=== PATIENT | female | born 1975 | race Caucasian/White ===

== ENCOUNTER 2022-12-19 19:44 | Emergency (ER) | payer SELFPAY ==
[2022-12-19 20:36] VITALS: BP 106/65; PULSE 90; RESP 18; TEMP 36.8; O2SAT 99; BMI 23.5
[2022-12-19] MEDS: 0.9 % SODIUM CHLORIDE 1000 ml 1,000 ML IV ×2 (20:45→22:20)
--- NOTE | 2022-12-19 20:49 | CRLHL7_ITS ---
For Patients: As a result of the Century Cures Act, medical imaging exams and procedure reports are released immediately into your electronic medical record. You may view this report before your referring provider. If you have questions, please contact your health care provider. INDICATION: Abdominal pain TECHNIQUE: CT abdomen and pelvis acquired with 67 cc Isovue 370 IV contrast. Permanently recorded images are archived. COMPARISON: CT abdomen and pelvis 10/24/2015 FINDINGS: Lower chest: Unremarkable. Liver: Unremarkable. Normal in size and attenuation. No suspicious masses. Gallbladder and bile ducts: Cholelithiasis. No inflammation or biliary ductal dilation. Pancreas: Unremarkable. No mass or inflammation. Spleen: Unremarkable. Normal in size. No masses. Adrenal glands: Unremarkable. No nodules. Kidneys, Ureters, and Bladder: Mild asymmetric right-sided perinephric stranding. There are subtle areas of hypoattenuation within the cortex the right kidney. No stone or suspicious mass bilaterally. Unremarkable ureters and bladder. GI tract: Moderate colonic stool burden. Normal in caliber. No sign of inflammation. Normal appendix. Vasculature: Normal caliber abdominal aorta with mild atherosclerotic calcification. Mesenteric arteries are patent. Lymph nodes: No lymphadenopathy. Peritoneum/Abdominal Wall: Unremarkable. No free air or significant free fluid. Pelvis: Unremarkable. Bones: Unremarkable for age. IMPRESSION: Mild asymmetric right-sided perinephric stranding with subtle areas of hypoattenuation within the right renal cortex. Findings are suspicious for acute right-sided pyelonephritis. Recommend correlation with urinalysis. No evidence for renal abscess. Moderate colonic stool burden. Cholelithiasis without evidence for acute cholecystitis. Please note that all CT scans at this facility use dose modulation, iterative reconstruction, and/or weight-based dosing when appropriate to reduce radiation dose to as low as reasonably achievable. Dictated by Luis Berrios MD @ 12/19/2022 10:00:27 PM (Electronically Signed)
--- NOTE | 2022-12-19 20:50 | ED_ITS ---
HPI - Nausea/Vomiting/Diarrhea General Chief complaint: Nausea/Vomiting Stated complaint: Vomiting, body aches Time Seen by Provider: 12/19/22 20:46 History of Present Illness HPI Narrative: Patient is a 47-year-old woman with minimal past medical history who presents with vomiting for 3-4 days. She has had no change in her bowel but does have pain in the right lower quadrant. She has had generalized anorexia. She has had no blood in her vomitus. She has had no fevers no chills no night sweats no cough no shortness of breath. She has not been around anybody sick and has had no recent travel. The pain that she feels in her right lower quadrant is moderate and dull. No radiation. Related Data Home Medications Medication Instructions Recorded Confirmed No Known Home Medications 12/19/22 12/19/22 Allergies Allergy/AdvReac Type Severity Reaction Status Date / Time No Known Drug Allergies Allergy Verified 12/19/22 20:36 Review of Systems Status of ROS: Reports: 10 or more systems reviewed and unremarkable except as noted in History and below [facility] Medical History Sinusitis ?J32.9 - Chronic sinusitis, unspecified (ICD-10) Social History Smoking Status: Current some day smoker What tobacco products do you use: cigarettes Do you use any of these nicotine containing products: None Second hand tobacco smoke exposure: No How often do you have a drink containing alcohol: never How often do you have six or more drinks on one occasion: Never AUDIT-C Alcohol total score: 0 Non-prescribed substance use: denies use service: No Exam Narrative: Exam Narrative: EXAM GENERAL: Patient appears comfortable and well. EYES: No scleral icterus. LYMPH: No supraclavicular or cervical lymphadenopathy. SKIN: Visible skin seen during exam normal or with benign process only. EXT: No dependent lower extremity pedal edema. HEART: Regular rate and rhythm with no murmurs, rubs, or gallops. LUNGS: Clear to auscultation bilaterally with no crackles or wheezes. ABD: Soft, non tender, non distended. Minimal tenderness to palpation the right lower quadrant. PSYCH: Good eye contact, speech is not pressured. Const: Vital Signs, click to edit/add: Vital Signs - 24 hr 12/19/22 20:36 Temperature 98.2 F Pulse Rate [Right Pulse Oximeter] 90 Respiratory Rate 18 Blood Pressure [Ri ght Upper Arm] 106/65 Pulse Oximetry 99 Oxygen Delivery Me thod Room Air Course Course ED Course: Patient seen examined. IV fluids started. IV Zofran 4 mg given CBC CMP amylase UA CT abdomen pelvis collected. Vital Signs Vital signs: Initial Vital Signs Temperature 98.2 F 12/19/22 20:36 Temperature Source Temporal Artery Scan 12/19/22 20:36 Pulse Rate 90 12/19/22 20:36 Respiratory Rate 18 12/19/22 20:36 Blood Pressure 106/65 12/19/22 20:36 Blood Pressure Mean 78 12/19/22 20:36 Blood Pressure Position Sitting 12/19/22 20:36 Pulse Oximetry 99 12/19/22 20:36 Oxygen Delivery Method Room Air 12/19/22 20:36 Vital Signs Temperature 98.2 F 12/19/22 20:36 Pulse Rate 90 12/19/22 20:36 Respiratory Rate 18 12/19/22 20:36 Blood Pressure 106/65 12/19/22 20:36 Pulse Oximetry 99 12/19/22 20:36 Oxygen Delivery Method Room Air 12/19/22 20:36 Temperature 98.2 F 12/19/22 20:36 Pulse Rate 90 12/19/22 20:36 Respiratory Rate 18 12/19/22 20:36 Blood Pressure 106/65 12/19/22 20:36 Pulse Oximetry 99 12/19/22 20:36 Oxygen Delivery Method Room Air 12/19/22 20:36 MDM - Nausea/Vomiting/Diarrhea MDM Narrative Medical decision making narrative: Patient is a 47-year-old woman who presents with nausea vomiting and abdominal pain. She does have leukocytosis as well as elevated transaminase and alkaline phosphatase. CT of the abdomen pelvis shows right-sided pyelonephritis. Patient is treated with IV hydration with 2 L normal saline. She was treated with IV Zofran. I did give her initial dose of Rocephin and did collect blood cultures and urine culture. UA still pending. At this time I did recommend ciprofloxacin 500 mg twice a day for 7 days with outpatient follow-up in 3-4 days. Zofran as needed for vomiting. Also noted on her evaluation was elevated transaminitis which I would recommend outpatient workup. Differential Diagnosis Differential diagnosis: Likely traveler's diarrhea, food poisoning, gastroenteritis, drug-induced nausea and vomiting and dehydration Lab Data Labs: Lab Results 12/19/22 12/19/22 Range/Units 20:35 20:45 WBC 12.43 H (4.50-11.00) K/uL RBC 4.22 (4.00-5.20) m/uL Hgb 13.3 (12.0-16.0) gm/dL Hct 40.4 (33.0-51.0) % MCV 96 (80-100) fL MCH 32 (26-34) pg MCHC 33 (32-36) gm/dL RDW Coeff of Josefina 12.9 (11.5-15.5) % Plt Count 303 (140-440) K/uL Neut % (Auto) 78.9 H (42.0-72.0) % Lymph % (Auto) 12.3 L (20-44) % Millard % (Auto) 6.5 (0.0-11.0) % Eos % (Auto) 1.2 (0.0-7.0) % Baso % (Auto) 0.2 (0.0-3.0) % Neut # (Auto) 9.80 H (1.7-7.0) K/uL Lymph # (Auto) 1.50 (0.90-2.90) K/uL Millard # (Auto) 0.80 (0.00-0.90) K/UL Eos # (Auto) 0.10 (0.00-0.50) K/uL Baso # (Auto) 0.00 (0.00-0.30) K/uL Abs Immat Gran (auto) 0.10 (0.00-0.30) K/uL Imm/Tot Granulo (auto) 0.9 % Sodium 137 (135-149) mmol/L Potassium 3.5 L (3.6-5.1) mmol/L Chloride 105 (96-114) mmol/L Carbon Dioxide 25 (20-32) mmol/L Anion Gap 7 (7-15) mEq/L BUN 14 (5-24) mg/dL Creatinine 0.9 (0.5-1.5) mg/dL Estimated Creat Clear 68.16 Estimated GFR 80 ml/min Glucose 106 (60-115) mg/dL Calcium 8.9 (8.4-10.6) mg/dL Total Bilirubin 0.4 (0.1-1.5) mg/dL AST 205 H (12-35) U/L ALT 272 H (4-35) U/L Alkaline Phosphatase 172 H (40-150) U/L Total Protein 7.6 (6.0-8.3) g/dL Albumin 3.9 (3.3-5.0) g/dL Amylase 54 (18-89) U/L SARS-CoV-2 (PCR) Negative SARS-CoV-2 (Negative) Influenza Type A (PCR) Negative PCR FLU A (Negative) Influenza Type B (PCR) Negative PCR FLU B (Negative) RSV (PCR) Negative PCR RSV (Negative) Discharge Plan Discharge Clinical Impression: Pyelonephritis Patient Disposition: Home, Self-Care Condition: Stable Instructions: Kidney Infection (ED) Additional Instructions: Ciprofloxacin x7 days Outpatient follow-up in 3-4 days Zofran as needed for vomiting. Rest Fluids PCP follow-up Activity Level: No Restrictions Discharge Diet: Regular Prescriptions: No Action No Known Home Medications Follow Up/Referrals: Provider,Not a Local [Primary Care Provider] - Stand Alone Forms: [employer] Info Instructions
[2022-12-19 21:03] LABS: Basophils Percent Auto 0.2 % (0.0-3.0); Eosinophils Percent Auto 1.2 % (0.0-7.0); Hematocrit 40.4 % (33.0-51.0); Hemoglobin* 13.3 gm/dL (12.0-16.0); Immature Granulocytes Pct Auto 0.9 %; Lymphocytes Percent Auto 12.3 % (20-44); Mean Corpuscular HGB Conc 33 gm/dL (32-36); Mean Corpuscular Hemoglobin 32 pg (26-34); Mean Corpuscular Volume 96 fL (80-100); Monocytes Percent Auto 6.5 % (0.0-11.0); Neutrophils Percent Auto 78.9 % (42.0-72.0); Platelet Count* 303 K/uL (140-440); RDW Coefficient of Variation % 12.9 % (11.5-15.5); Red Blood Count 4.22 m/uL (4.00-5.20); White Blood Count* 12.43 K/uL (4.50-11.00)
[2022-12-19 21:05] LABS: Slide Review Reflex No
[2022-12-19 21:14] LABS: Albumin* 3.9 g/dL (3.3-5.0); Chloride* 105 mmol/L (96-114)
[2022-12-19 21:15] LABS: Potassium* 3.5 mmol/L (3.6-5.1); Sodium* 137 mmol/L (135-149)
[2022-12-19 21:17] LABS: Amylase* 54 U/L (18-89); Anion Gap 7 mEq/L (7-15); Aspartate Amino Transferase* 205 U/L (12-35); Bilirubin Total* 0.4 mg/dL (0.1-1.5); Blood Urea Nitrogen* 14 mg/dL (5-24); Carbon Dioxide* 25 mmol/L (20-32); Creatinine* 0.9 mg/dL (0.5-1.5); Est. Creatinine Clearance* 68.16; Estimated Glomerular Filt Rate 80 ml/min; Total Protein* 7.6 g/dL (6.0-8.3)
[2022-12-19 21:18] LABS: Alanine Aminotransferase* 272 U/L (4-35); Alkaline Phosphatase* 172 U/L (40-150); Calcium* 8.9 mg/dL (8.4-10.6); Glucose* 106 mg/dL (60-115)
[2022-12-19 21:24] LABS: PCR FLU A Negative PCR FLU A (Negative); PCR FLU B Negative PCR FLU B (Negative); PCR RSV Negative PCR RSV (Negative); SARS PCR* Negative SARS-CoV-2 (Negative)
[2022-12-19] MEDS: ONDANSETRON 2 MG/ML inj 4 MG IVP (21:45)
[2022-12-19] MEDS: cefTRIAXone 1 GM in 0.9 % SODIUM CHLORIDE Mini-bag 100 ML IVPB (22:20)
[2022-12-19 22:31] LABS: Appearance Urine Clear (Clear); Bilirubin Urine Negative (Negative); Blood Urine 2+ (Negative); Color Urine Yellow (Yellow); Glucose Urine Negative (Negative); Ketones Urine Negative (Negative); Leukocyte Esterase Urine Trace (Negative); Nitrite Urine Positive (Negative); Protein Urine 1+ (Negative); Specific Gravity Urine <= 1.005 (1.000-1.030); Urobilinogen Urine 0.2 (0.2-1.0); pH Urine 5.5 (5.0-8.5)
[2022-12-19 22:50] LABS: Bacteria Urine Few; Squamous Epithelial Cell Urine Moderate (None-Few)
== END 2022-12-19 23:28 | disposition home or self-care (01) ==
PROVIDERS: Emergency Provider Internal Medicine
DX: N12 Tubulo-interstitial nephritis, not specified as acute or chronic (principal)
CPT/HCPCS: 36415; 74177; 80053; 81003; 81015; 82150; 85025; 87040; 87086; 87186; 87631; 99283; 99284; 99285; J0696; J2405; J7030; Q9967

== ENCOUNTER 2024-06-28 09:38 | Emergency (ER) | payer OTHER, SELFPAY ==
[2024-06-28 09:47] VITALS: BP 118/73; PULSE 97; RESP 18; TEMP 36.9; O2SAT 99; BMI 24.6
--- NOTE | 2024-06-28 10:06 | ED.SKABFB ---
HPI - Skin/Abscess/Foreign Bdy General Date Seen: 06/28/24 Chief complaint: Insect Bite Stated complaint: bug bite left arm Time Seen by Provider: 06/28/24 09:56 Source: patient Mode of arrival: ambulatory Limitations: no limitations History of Present Illness HPI narrative: This pleasant lady presents here with a bug bite to her left elbow, this occurred last weekend, so the says been for the last 4 days, she thinks it was a spider, she did not pull anything off to suggest it was a tick, it has become more painful and swollen as have some discharge, took ibuprofen yesterday and this seemed to help it, she has not lost range of motion of her left elbow, her tetanus is up-to-date in 2018 and she has no history of immunosuppressive diseases, she was using some triple antibiotic ointment on the area. It is not itchy, she has had no fevers or chills. She works at [employer] there is no history of any other travel history. MD complaint: insect bite/sting Tetanus up to date: yes Associated symptoms: denies other symptoms Treatments prior to arrival: OTC topical medication Related Data Previous Rx's ?Medication ?Instructions ?Recorded cephalexin 500 mg capsule 500 mg PO TID #21 caps 06/28/24 Allergies Allergy/AdvReac Type Severity Reaction Status Date / Time No Known Drug Allergies Allergy Verified 06/28/24 09:47 Review of Systems Status of ROS: Reports: 6 or more systems reviewed and unremarkable except as noted in History and below [facility] Medical History Sinusitis ?J32.9 - Chronic sinusitis, unspecified (ICD-10) Social History Smoking Status: Current every day smoker What tobacco products do you use: cigarettes Do you use any of these nicotine containing products: None Second hand tobacco smoke exposure: No How often do you have a drink containing alcohol: never How often do you have six or more drinks on one occasion: Never AUDIT-C Alcohol total score: 0 Non-prescribed substance use: denies use service: No Exam Narrative: Exam Narrative: Examination she is in no apparent distress she is pleasant alert there is approximately a little bit bigger than a silver dollar sized area of redness, with a central crater, was losing some yellowish substance, nothing to Manny. Her elbow on the left has full range of motion of flexion extension and supination pronation, she does not have an effusion, her brachial and radial pulses are normal sensation is otherwise normal. There is no lymph nodes palpable. Her left axilla. Const: Vital Signs, click to edit/add: Vital Signs - 24 hr 06/28/24 09:47 Temperature 98.4 F Pulse Rate [Pulse Oximeter] 97 Respiratory Rate 18 Blood Pressure [Ri ght Upper Arm] 118/73 Pulse Oximetry 99 Oxygen Delivery Me thod Room Air Documenting provider has reviewed patient's vital signs: yes Course Vital Signs Vital signs: Initial Vital Signs Temperature 98.4 F 06/28/24 09:47 Temperature Source Temporal Artery Scan 06/28/24 09:47 Pulse Rate 97 06/28/24 09:47 Respiratory Rate 18 06/28/24 09:47 Blood Pressure 118/73 06/28/24 09:47 Blood Pressure Mean 88 06/28/24 09:47 Blood Pressure Position Sitting 06/28/24 09:47 Pulse Oximetry 99 06/28/24 09:47 Oxygen Delivery Method Room Air 06/28/24 09:47 Vital Signs Temperature 98.4 F 06/28/24 09:47 Pulse Rate 97 06/28/24 09:47 Respiratory Rate 18 06/28/24 09:47 Blood Pressure 118/73 06/28/24 09:47 Pulse Oximetry 99 06/28/24 09:47 Oxygen Delivery Method Room Air 06/28/24 09:47 Temperature 98.4 F 06/28/24 09:47 Pulse Rate 97 06/28/24 09:47 Respiratory Rate 18 06/28/24 09:47 Blood Pressure 118/73 06/28/24 09:47 Pulse Oximetry 99 06/28/24 09:47 Oxygen Delivery Method Room Air 06/28/24 09:47 MDM - Skin/Abscess/Foreign Bdy MDM Narrative Medical decision making narrative: I suspect that this is an infected bite, I do not suspect this was a tick, I think it would be reasonable to give her some oral antibiotics for 7 days I did warn her of the complications associated with this, and recommended that she take probiotics with this. We went over worsening signs and symptoms were she should re-presented to the emergency room, and she was comfortable with this. Differential Diagnosis Differential diagnosis: Likely abscess of skin or subcutaneous tissue, viral exanthem, dermatophytosis, urticaria, herpes zoster, allergic reaction to drug, cellulitis, eczema, insect bites, impetigo and contact dermatitis Medical Records Attestation: I reviewed the patient's medical records. Discharge Plan Discharge Clinical Impression: Bug bite with infection Patient Disposition: Home, Self-Care Condition: Stable Instructions: Cold Compress or Soak (ED) Additional Instructions: Home, rest, use of antibiotics as directed I would use also probiotics with this lot a yogurt, cheese, kimchi and other things could you do not kill off your normal good gut bacteria. This usually takes a while to improve, would probably look at 10-14 days, if the rednesstracks up your arm, or significantly worsens or your not able to flex her elbow then come back and be seen. Activity Level: Light activity Prescriptions: New cephalexin 500 mg capsule 500 mg PO TID Qty: 21 0RF Follow Up/Referrals: Provider,Not a Local [Primary Care Provider] - Stand Alone Forms: [employer] Info Instructions
--- OUTSIDE RECORDS SUMMARY | 2024-06-28 10:18 | XMS_ITS | Clinical Summary ---
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, 2007, with pyelonephritis Resolved Problems Problem Noted Date Diagnosed Date Resolved Date Long-term (current) use of anticoagulants 11/22/2007 02/25/2008 Immunizations Immunization Administration Dates Next Due Tdap 02/05/2018 Family History Medical History Relation Name Comments Good Health Father Good Health Mother Diabetes Paternal Grandmother Relation Name Status Comments Father Mother Paternal Grandmother Social History Tobacco Use Types Packs/Day Years Used Date Smoking Tobacco: Every Day Cigarettes Smokeless Tobacco: Never Tobacco Cessation:Ready to Q uit: Not Asked; Counseling Given: Not Answered Comments:less than .25 Alcohol Use Standard Drinks/Week Comments Yes 0 (1 standard drink = 0.6 oz pur e alcohol) occ PHQ-2 Answer Date Recorded PHQ-2 TOTAL SCORE 1 09/25/2022 Comments No Sex and Gender Information Value Date Recorded Sex Assigned at Not on file Legal Sex Female 5:26 AM [employer]INC[employer] Gender Identity Not on file Sexual Orientation Not on file Obstetrics History Last Filed Vital Signs Vital Sign Reading Time Taken Comments Blood Pressure 116/74 09/25/2022 9:57 AM CDT Pulse 90 09/25/2022 9:57 AM CDT Temperature 36.5 C (97.7 F) 07/18/2021 3:09 PM CDT Respiratory Rate 18 07/18/2021 3:09 PM CDT Oxygen Saturation 98% 09/25/2022 9:57 AM CDT Inhaled Oxygen Concentration - - Weight 62.3 kg (137 lb 6.4 oz) 09/25/2022 9:57 A M CDT Height 162 cm (5' 3.78) 09/25/2022 9:57 AM CDT Body Mass Index 23.75 09/25/2022 9:57 AM CDT Plan of Treatment Health Maintenance Due Date Last Done Comments Pneumococcal series for age 6-49 (1 of 2 - PCV) 1996 Colonoscopy through age 75 2022 Mammogram for age 45-75 2022 BMI (ht and wt on same day) for age 18+ 09/26/2023 09/25/2022, 02/05/2018 Depression screening for age 12+ 09/30/2023 09/29/2022, 09/25/2022, 02/08/2018, Additional history exists COVID-19 vaccine series ( - season) 2023 Influenza Vaccine (Season Ended) 2024 Lipids for age 45-75 09/26/2027 09/25/2022, 02/06/20 18 Pap test for age 21-65 09/26/2027 , 09/25/2022, 02/05/2018, Additional history exists Tetanus booster 02/06/2028 02/05/2018 Tdap Completed 02/05/2018 HIV for age 15-65 Completed 09/25/2022 Hepatitis C screening for ag e 18-79 Completed 09/25/2022 Procedures Procedure Name Priority Date/Time Associated Diagnosis Comments HPV HIGH RISK Routine 09/25/2022 10:34 AM CDT Screening for malignant neoplasm of cervix LC HIV-1/O/2, 4TH GENERATION Routine 09/25/2022 10:30 AM CDT Screening for HIV (human immunodeficiency virus) LC HCV ANTIBODY RFX TO QUANT PCR Routine 09/25/2022 10:30 AM CDT Need for hepatitis C screening test LIPID PANEL W REFLEX MEASURED LDL Routine 09/25/2022 10:30 AM CDT Screening cholesterol level from Last 3 Months or Most Recently Relevant to Health Maintenance Results * HPV HIGH RISK (09/25/2022 10:34 AM CDT) TYPE 16 Negative Negative 09/30/2022 11:09 AM CDT [facility] TYPE 18 Negative Negative 09/30/2022 11:09 AM CDT [facility] OTHER HIGH RISK TYPES Negative Negative 09/30/2022 11:09 AM CDT [facility] Other (Cervical) Non-Blood / Unknown 09/25/2022 10:34 AM CDT 09/26/2022 2:35 PM CDT Narrative [facility] - 09/30/2022 11:09 AM CDT HPV types 16, 18, 31, 33, 35, 39, 45, 51, 52, 56, 58, 59, 66 and 68 DNA were undetectable or below the pre-set threshold. Methodology: Reji Matty 4800 HPV Test Kayla [facility] Final Resu lt [facility] [address] [place] [address], * LC HCV ANTIBODY RFX TO QUANT PCR (09/25/2022 10:30 AM CDT) HCV Ab Non Reactive Non Reactive 09/29/2022 11:06 PM CDT [facility] Blood BLOOD SPECIMEN / Unknown Venipuncture / Unknown 09/25/2022 10:30 AM CDT 09/25/2022 10:34 AM CDT Narrative [facility] ([facility]) - 09/29/2022 11:06 PM CDT Performed at: [address] [place] [id number] Technical Illustrations Map Inker: Dexter Charles MD, Phone: [phone] [facility] Final Resu lt Performing Organization Address [facility]/ZIP Co de Phone Number [facility] ([facility]) [address] [place] [address], * LC HIV-1/O/2, 4TH GENERATION (09/25/2022 10:30 AM CDT) HIV Scr 4th Gen Non Reactive Non Reactive 09/29/2022 11:06 PM CDT [facility] ([facility]) Comment: HIV Negative HIV-1/HIV-2 antibodies and HIV-1 p24 antigen were NOT detected. There is no laboratory evidence of HIV infection. Blood BLOOD SPECIMEN / Unknown Venipuncture / Unknown 09/25/2022 10:30 AM CDT 09/25/2022 10:34 AM CDT Narrative [facility] ([facility] - 09/29/2022 11:06 PM CDT Performed at: [address] [place] [id number] Technical Illustrations Map Inker: Dexter Charles MD, Phone: [phone] [facility] Final Resu lt Performing Organization Address [facility] Co de Phone Number [facility] ([facility]) [address] [place] [address], * LIPID PANEL W REFLEX MEASURED LDL (09/25/2022 10:30 AM CDT) CHOLESTEROL,TOTAL 172 100 - 199 mg/dL 09/25/2022 11:53 PM CDT [facility] Comment: Cholesterol, Total Reference Ranges Desirable <200 mg/dL Borderline 200-239 mg/dL High >=240 mg/dL TRIGLYCERIDES 104 <150 mg/dL 09/25/2022 11:53 PM CDT [facility] HDL CHOLESTEROL 46 >40 mg/dL 11:53 PM CDT [facility] NON-HDL CHOLESTEROL 126 <145 mg/dl 09/25/2022 11:53 PM CDT [facility] CHOL/HDL RATIO 3.74 <4.50 09/25/2022 11:53 PM CDT [facility] LDL CHOLESTEROL 105 <=130 mg/dL 09/25/2022 11:53 PM CDT [facility] VLDL CHOLESTEROL 21 <=30 mg/dL 09/25/2022 11:53 PM CDT [facility] PROVIDER ORDERED STATUS RANDOM 09/25/2022 11:53 PM CDT [facility] Blood BLOOD SPECIMEN / Unknown Venipuncture / Unknown 09/25/2022 10:30 AM CDT 09/25/2022 10:34 AM CDT us Kyala [facility]MI[facility] Final Resu lt [facility] [address] [place] [address], [place] from Last 3 Months or Most Recently Relevant to Health Maintenance
== END 2024-06-28 10:25 | disposition home or self-care (01) ==
LOC: ED 10:17
PROVIDERS: Emergency Provider Family Medicine
DX: S50.362A Insect bite (nonvenomous) of left elbow, initial encounter (principal); W57.XXXA Bitten or stung by nonvenomous insect and other nonvenomous arthropods, initial encounter
CPT/HCPCS: 99282; 99283